=== PATIENT | male | born 1975 | race Caucasian/White ===

== ENCOUNTER 2018-11-18 18:16 | Emergency (ER) | payer MEDICAID, OTHER ==
[~2018-11-18] VITALS: Ht 165.1 cm; Wt 97.7 kg
[2018-11-18 18:36] VITALS: Ht 165.1 cm; Wt 97.7 kg
--- NOTE | 2018-11-18 21:13 | ERD ---
ER Documentation Chief Complaint Chief Complaint abdominal pain, n/v with weakness x 1 day HPI 43-year-old male, previously healthy, presents the emergency department, complaining of a painful mass sensation in the epigastric area for more than 4 months, the patient relates that he has a hernia and wants to be evaluated for it. Otherwise he reports intermittent episodes of nausea and burning epigastric pain. He denies fever, chills, diarrhea or constipation, no weight loss. ROS All systems reviewed and are negative except as per history of present illness. Medications Home Meds Active Scripts Hydrocodone/Acetaminophen ([place] 5-325 Tablet) 1 Each Tablet, 1 TAB PO QHS PRN for PAIN, #7 TAB Prov:EDYTA RAI MD 11/18/18 Acetaminophen* (Tylenol*) 325 Mg Tablet, 2 TAB PO Q6 PRN for PAIN AND OR ELEVATED TEMP, #20 TAB Prov:EDYTA RAI MD 11/18/18 Ranitidine Hcl* (Zantac*) 150 Mg Tablet, 150 MG PO BID PRN for EPIGASTRIC PAIN, #30 TAB Prov:EDYTA RAI MD 11/18/18 Allergies Allergies: Coded Allergies: No Known Allergy (Unverified , 11/18/18) PMhx/Soc History of Surgery: Yes ([place], R inguinal hernia) Anesthesia Reaction: No Hx Alcohol Use: Yes (socially) Hx Substance Use: No Hx Tobacco Use: No Smoking Status: Never smoker FmHx Family History: No diabetes, No coronary disease Physical Exam Vitals Vital Signs Date Temp Pulse Resp B/P (MAP) Pulse Ox O2 O2 Flow FiO2 Time Delivery Rate 11/18/18 98.0 84 16 136/77 97 Room Air 22:48 (96) 11/18/18 97.7 99 16 144/91 99 18:36 (108) Physical Exam Const: No acute distress Head: Atraumatic Eyes: Normal Conjunctiva ENT: Normal External Ears, Nose and Mouth. Neck: Full range of motion. No meningismus. Resp: Clear to auscultation bilaterally Cardio: Regular rate and rhythm, no murmurs Abd: Soft, non tender, non distended. Normal bowel sounds Skin: No petechiae or rashes Back: No midline or flank tenderness Ext: No cyanosis, or edema Neur: Awake and alert Psych: Normal Mood and Affect Results 24 hrs Current Medications Medications Dose Sig/Brigid Start Time Status Last (Trade) Ordered Route PRN Stop Time Admin Dose Reason Admin 40 ml ONCE ONCE 11/18/18 DC 11/18/18 Miscellaneous PO 21:30 11/18/18 21:52 Medication 21:31 (Gi Cocktail (2)) 650 mg ONCE ONCE 11/18/18 DC 11/18/18 Acetaminophen PO 21:30 11/18/18 21:53 (Tylenol 21:31 Tab) DIAGNOSTIC IMAGING REPORT Patient: ARIANNA GARCIA : 1975 Age: 43 Sex: M MR #: [id number] DOS: 11/18/182104 Ordering MD: EDYTA RAI MD Location: [facility] Room/Bed: PROCEDURE: US abdomen CLINICAL INDICATION: Palpable lump TECHNIQUE: Multiple sonographic images of the abdominal periumbilical and epigastric region were obtained utilizing a linear array transducer with grayscale and color-flow and a Doppler imaging. The images were reviewed on a high-resolution PACS workstation. COMPARISON: No prior studies are available for comparison. FINDINGS: No focal mass or fluid collection visualized. No evidence of hernia. The rectus muscles appear intact. There is no evidence of hematoma. RPTAT: AA IMPRESSION: No focal mass or fluid collection visualized. No evidence of ventral hernia. Patient: ARIANNA GARCIA : 1975 Age: 43 Sex: M MR #: [id number] DOS: 11/18/182104 Ordering MD: EDYTA RAI MD Location: E Room/Bed: PROCEDURE: US Abdomen. CLINICAL INDICATION: abdominal pain TECHNIQUE: Multiple real-time images were acquired of the patient's right upper quadrant abdomen and retroperitoneum utilizing a high resolution transducer. COMPARISON: None FINDINGS: The liver demonstrates increased echogenicity. The liver is normal in size and no focal solid lesions are seen. The liver measures 15.5 cm in length. The portal vein is patent with normal direction of flow. No intrahepatic biliary dilatation is seen. No gallstones are identified within the gallbladder. There is a small amount of sludge within the gallbladder. There is no pericholecystic fluid or gallbladder wall thickening. The common bile duct measures 4 mm in maximal dimension. The visualized portions of the pancreas are unremarkable. The tail of the pancreas is not seen. No free fluid is identified. The right kidney is normal in size, and demonstrate normal echogenicity and cortical thickness. The right kidney measures 10.3 cm in long dimension. There is no evidence of hydronephrosis. There are no kidney stones. RPTAT: AA Procedures/MDM Vital signs stable physical exam unremarkable, abdomen nontender. Differential diagnosis include but not limited to: Gastritis, gastroenteritis, cholelithiasis, cholecystitis, kidney stones, irritable bowel syndrome, inflammatory bowel syndrome, malabsorption syndrome, food intolerance, medication side effect, pancreatitis, diverticulitis, bowel obstruction. Physical examination and clinical presentation consistent most likely with acute gastritis, No evidence of a ventral hernia. During the ED course the patient remained stable, no new complaints. Results and clinical impression discussed with the patient who agrees with management. The patient is stable to be treated outpatient and will be discharged home with a Rx for ranitidine and Tylenol, some side effects of prescribed medications (headache, rash, nausea, vomiting, diarrhea, drowsiness, habituation, bleeding, hypertension, interactions with other medications) were reviewed. Follow up with the primary care provider in the next 48h is recommended. If sym ptoms persist, worsen or new symptoms develop, then patient should return to the ED immediately. Instructions explained and given directly by me to the patient with acknowledgment and demonstrated understanding. Disclaimer: Inadvertent spelling and grammatical errors are likely due to EHR/dictation software use and do not reflect on the overall quality of patient care. Also, please note that the electronic time recorded on this note does not necessarily reflect the actual time of the patient encounter. Departure Diagnosis: Primary Impression: Abdominal pain Additional Impressions: GERD (gastroesophageal reflux disease) Sludge in gallbladder Condition: Stable Additional Instructions: Thank you very much for allowing us to participate in your care. Your health and safety is our top priority at [facility]. The evaluation in the emergency department has been done to rule out an acute emergency. Chronic, pbo-anib-exsoaounobl conditions may have not been evaluated; therefore, you need to follow up with a primary care provider in the next 48h. If symptoms persist, worsen or new symptoms develop, then patient should return to the ED immediately. Call your primary care doctor TOMORROW for an appointment during the next 2-4 days and bring all the information provided. Have prescriptions filled and follow precisely the directions on the label. If the symptoms get worse and your provider is unavailable, return to the Emergency Department immediately. EDYTA RAI MD Nov 18, 2018 21:07
[2018-11-18] MEDS ORDERED: LIDOCAINE/MYLANTA 40 ML BTL PO ONE (21:30)
[2018-11-18] MEDS ORDERED: ACETAMINOPHEN 325 MG TAB PO ONE (21:30)
[2018-11-18] MEDS ORDERED: HYDR-4011 PO (22:30)
[2018-11-18] MEDS ORDERED: ACET325T33 PO (22:30)
[2018-11-18] MEDS ORDERED: RANI150T35 PO (22:30)
[2018-11-18 22:48] VITALS: BP 136/77; PULSE 84; RESP 16
== END 2018-11-18 22:48 | disposition home or self-care (01) ==
LOC: FTE 18:16
DX: K21.9 Gastro-esophageal reflux disease without esophagitis (principal); K82.8 Other specified diseases of gallbladder
CPT/HCPCS: 76536; 76705; Z7502; Z7610